=== PATIENT | male | born 1995 | race Asian ===

== ENCOUNTER 2021-03-29 15:16 | Emergency (ER) | payer OTHER ==
[2021-03-29 15:36] VITALS: BP 133/88; PULSE 63; TEMP 98.3; BMI 24.2
[2021-03-29] MEDS ORDERED: IBUPROFEN 600 MG TABLET (FP) PO ONE ×2 (15:43→15:58)
== END 2021-03-29 18:05 | disposition home or self-care (01) ==
LOC: FER 15:16
DX: S92.352A Displaced fracture of fifth metatarsal bone, left foot, initial encounter for closed fracture (principal); X50.9XXA Other and unspecified overexertion or strenuous movements or postures, initial encounter
CPT/HCPCS: 73630-TC-LT; 99283-25